=== PATIENT | male | born 1955 | race Caucasian/White ===

== ENCOUNTER 2023-06-30 17:49 | Observation (INO) ==
--- NOTE | 2023-06-30 18:05 | ED.PDOC ---
General ED Provider: Dr. MILLICENT CASTILLO DO Chief Complaint: Nausea/Vomiting Stated Complaint: Patient is a 68 yo M here for 24 hours of fever chills and diarrhea Patient arrives afebrile and vitally stable by POV Patietn denies pain He reprots 3+ episodes of loose stool without melena or hematochaezia He has no hx of abdominal surgeries No falls or injuires PCP Dr. Murillo He takes amlodipin, a statin and gabapentin Patietn denies sick contacts No provoking or palliating factors Patient declines advanced imaging and amenable to Time Seen by Provider: 06/30/23 18:03 Primary Care Provider: ANTONIO MURILLO Nursing and Triage Documentation Reviewed and Agree: Yes Review of Systems Review Of Systems Constitutional: Reports Chills, Fever and Weakness; Denies Sweats Eyes: Denies Blindness or Foreign body sensation Ears, Nose, Mouth, Throat: Denies Ear pain, Nose pain or Mouth pain Respiratory: Denies Cough, Shortness of Breath or Wheezing Cardiac: Denies Chest pain, Palpitations or Syncope GI: Reports Diarrhea; Denies Abdominal pain, Constipated, Nausea or Vomiting : Denies Burning or Dysuria Musculoskeletal: Denies Back pain or Joint pain Skin: Denies Bruising Neurological: Reports No symptoms Endocrine: Reports No symptoms Hematologic/Lymphatic: Reports No symptoms All Other Systems: Reviewed and Negative [facility] Social History Smoking and tobacco status: Current every day smoker Physical Exam Physical Exam Appearance: Reports Well-appearing and Well-nourished Ill-appearing: Not Applicable Pain Distress: Not Applicable Eyes: Reports SERVANDO and EOMI ENT: Reports Ears normal, Nose normal and Oropharynx normal Neck: Supple Respiratory: Reports Airway patent and Breath sounds clear; Denies Wheezes Cardiovascular: Reports RRR and Pulses normal GI/: Reports Soft and Nontender Musculoskeletal: Reports Normal strength and ROM intact Skin: Reports Warm and Dry Neurological: Reports Sensation intact and Motor intact Psychiatric: Reports Affect appropriate and Mood appropriate Critical Care Note Critical Care Note Total Critical Care Time (mins): 0 Course Course 06/30/23 18:13 06/30/23 18:13 Orders, Labs, Meds: Lab Review 06/30/23 18:13 WBC 10.13 RBC 4.71 Hgb 14.3 Hct 44.7 MCV 94.9 H MCH 30.4 MCHC 32.0 RDW Coeff of Manish 12.8 Plt Count 261 Immature Gran % (Auto) 0.3 Neut % (Auto) 76.7 H Lymph % (Auto) 12.7 [place] % (Auto) 9.9 Eos % (Auto) 0.2 Baso % (Auto) 0.2 Neut # (Auto) 7.8 H Lymph # (Auto) 1.3 [place] # (Auto) 1.0 Eos # (Auto) 0.0 Baso # (Auto) 0.0 Immature Gran # (Auto) 0.0 Sodium 137.3 Potassium 3.89 Chloride 105.2 Carbon Dioxide 21.2 L Anion Gap 14.79 BUN 18.8 Creatinine 1.12 H Estimated GFR (MDRD) 65.00 BUN/Creatinine Ratio 16.78 Glucose 93.2 Lactic Acid 0.87 Calcium 9.24 Total Bilirubin 0.65 AST 37.1 ALT 20.8 Alkaline Phosphatase 94.1 Total Protein 8.46 H Albumin 4.35 Globulin 4.11 Albumin/Globulin Ratio 1.05 Lipase 1950.6 H Influ A Molecular Assay Negative by naat Influ B Molecular Assay Negative by naat SARS CoV-2 RNA Rapid MIRANDA Negative Orders Category Date Time Status OBSERVATION [PLACE PATIENT OBSERVATION] .TO [facility] ADMISSION 06/30/23 19:52 Ordered (NON-MONITORED BED) NPO REMINDER: IMAGING ONCE CARE 06/30/23 18:43 Completed CBC W/ AUTO DIFF Stat LAB 06/30/23 18:13 Completed COMPREHENSIVE METABOLIC PANEL Stat LAB 06/30/23 18:13 Completed COVID [SARS COV-2 RNA RAPID MIRANDA] Stat LAB 06/30/23 18:13 Completed FLU A & B MOLECULAR [FLU A/B MOLECULAR] Stat LAB 06/30/23 18:13 Completed LACTIC ACID Stat LAB 06/30/23 18:13 Completed LIPASE Stat LAB 06/30/23 18:[address] ABDOMEN/PELVIS W CONTRAST Stat RADS 06/30/23 18:43 Completed Vital Signs: Temp Pulse Resp BP Pulse Ox 06/30/23 18:13 98 F 92 16 145/[address] abd added for chronically elevated lipase We discussed ct results and incidental findings MDM: Patient is a 68 yo M here for diarrhea and body aches patient afebrile and vitally stable Hx from patient chart review by me 3+ labs and 1 ct abd result reviewed by me Consults to CANDY Diop Patient and I discussed ct and lab results, findings and incidental findings WDX: Enteritis, elevated lipase, aortic aneurysm, diarrhea acute on [id number] moderate complexity DDX: I considered alcohol use, sepsis, sbo but these are less likely SDOH: patient has PCP and family support Patient amenable to observation and am studies Patient placed on observation Discharge Plan Discharge Patient Disposition: PLACED OBSERVATION Discharge Problem: Acute viral syndrome, Aortic aneurysm, Diarrhea, Elevated lipase Did you review [place] GEOPHYSICS PROFESSOR for ALL controlled substances?: Not Applicable ED Provider: MILLICENT CASTILLO Condition: Good Physician Progress Note: []
[2023-06-30 18:16] LABS: BASOPHILS % (AUTO) 0.2 % (0.0-3.0); EOSINOPHILS % (AUTO) 0.2 % (0.0-7.0); HEMATOCRIT 44.7 % (42.0-52.0); HEMOGLOBIN 14.3 g/dl (14.0-18.0); IMMATURE GRANULOCYTE % (AUTO) 0.3 % (0.0-5.0); LYMPHOCYTES # (AUTO) 1.3 K/uL (0.60-3.4); LYMPHOCYTES % (AUTO) 12.7 (10.0-50.0); MEAN CORPUSCULAR HEMOGLOBIN 30.4 pg (27.0-31.0); MEAN CORPUSCULAR VOLUME 94.9 fl (80.0-94.0); MONOCYTES % (AUTO) 9.9 (0-10); NEUTROPHILS # (AUTO) 7.8 K/ul (2.0-6.9); NEUTROPHILS % (AUTO) 76.7 % (42.2-75.2); PLATELET COUNT 261 10^3/uL (140-440); RDW COEFFICIENT OF VARIATION 12.8 % (11.6-14.8); RED BLOOD COUNT 4.71 10^6/ul (4.70-6.10); WHITE BLOOD COUNT 10.13 K/ul (4.2-10.2)
[2023-06-30 18:30] LABS: ALANINE AMINOTRANSFERASE 20.8 U/L (0-50); ALBUMIN 4.35 g/dL (3.5-5.0); ALKALINE PHOSPHATASE 94.1 U/L (56-119); ASPARTATE AMINO TRANSFERASE 37.1 U/L (17-59); BILIRUBIN,TOTAL 0.65 mg/dL (0.2-1.3); BLOOD UREA NITROGEN 18.8 mg/dL (9-20); CALCIUM 9.24 mg/dL (8.4-10.2); CARBON DIOXIDE 21.2 mmol/L (22-30.0); CHLORIDE 105.2 mmol/L (98-107); CREATININE 1.12 mg/dL (0.60-1.10); GLUCOSE 93.2 mg/dL (74-106); LIPASE 1950.6 U/L (23-300); POTASSIUM 3.89 mmol/L (3.5-5.1); SODIUM 137.3 mmol/L (134.5-145); TOTAL PROTEIN 8.46 g/dL (6.3-8.2)
[2023-06-30 18:39] LABS: MOLECULAR FLU A NEGATIVE BY NAAT (NEGATIVE); MOLECULAR FLU B NEGATIVE BY NAAT (NEGATIVE)
[2023-06-30 18:41] LABS: SARS COV-2 RNA RAPID NAAT NEGATIVE (NEGATIVE)
--- NOTE | 2023-06-30 19:19 | CT ---
EXAM: CT ABDOMEN/PELVIS WITH CONTRAST HISTORY: Diarrhea, chronic high lipase- worse, no pain COMPARISON: CT abdomen/pelvis from 07/04/2021 TECHNIQUE: Multi-slice postcontrast transaxial helical images are acquired through the abdomen and p vlad with coronal and sagittal reconstructed images. All CT scans are performed using dose optimi zation techniques as appropriate to the performed exam and includes at least one of the following: A utomated exposure control, adjustment of the mA and/or kV according to size, and the use of iterative reconstruction technique. CONTRAST: 75 mL Omnipaque-350 IV FINDINGS: Lung bases: No acute infiltrates. The lungs are emphysematous. There is prominence of the intersti tial lung markings. Liver: A simple cyst in hepatic segment III measuring 1.5 cm is unchanged. Gallbladder/bilary tree: Normal. Pancreas: Normal. Adrenal glands: There is mild nodular thickening of the left adrenal gland without significant change . The right adrenal gland is normal. Spleen: Normal. Kidneys: There are least 8 calculi in the left kidney ranging in size between less than 0.2 cm and 0 .7 cm. Simple acquired left renal cysts are noted. There are multiple areas of right renal cortical thinning. There is mild right hydronephrosis. No hydroureter. The left renal collecting system is nondilated. No ureterolithiasis. Retroperitoneum: The aorta is atherosclerotic. There is a fusiform infrarenal abdominal aortic aneu rysm measuring 35.9 x 30.4 mm. This has increased in size from 29.6 mm maximally on the prior. No r etroperitoneal lymphadenopathy or hematomas. Peritoneum: Normal. Bowel: Diverticula arise from large bowel without CT evidence of diverticulitis. The appendix is no rmal. There is prominence of the mucosal folds. No intestinal distension. Pelvis: Normal. Addominal wall/bones: A tiny fat transmitting umbilical hernia is noted. No suspicious bone lesions or acute osseous abnormalities. IMPRESSION: - Emphysema and interstitial lung disease. - Stable simple hepatic cyst. - No evidence of acute or chronic pancreatitis. - Probable left adrenal adenoma. - At least eight nonobstructing left renal calculi. - Chronic right renal cortical thinning could reflect a sequelae of reflux, stasis, infection, and/or ischemia. - Mild chronic right hydronephrosis. - Enlarging infrarenal aortic aneurysm measuring 35.9 x 30.4 mm, previously 29.6 mm maximally. - Colonic diverticulosis without CT evidence of diverticulitis. - Possible enteritis. . All CT scans are performed using dose optimization techniques as appropriate to the performed exam an d include at least one of the following: Automated exposure control, adjustment of the mA and/or kV according t o size, and the use of iterative reconstruction technique.
[2023-06-30] MEDS ORDERED: ZOFRAN 4 MG/2 ML IVP PRN (19:53)
[2023-06-30] MEDS: LACTATED RINGERS 1,000 ML IV SCH (20:58)
[2023-06-30 21:04] VITALS: BMI 24.3
[2023-06-30] MEDS ORDERED: LIPITOR PO SCH (21:30)
[2023-06-30] MEDS ORDERED: NORVASC PO SCH (21:30)
[2023-06-30] MEDS: NEURONTIN PO SCH (21:38)
[2023-07-01] MEDS: LACTATED RINGERS 1,000 ML IV SCH (05:20)
[2023-07-01 06:03] LABS: BASOPHILS % (AUTO) 0.2 % (0.0-3.0); EOSINOPHILS # (AUTO) 0.1 K/ul (0.0-0.7); EOSINOPHILS % (AUTO) 1.3 % (0.0-7.0); HEMATOCRIT 42.9 % (42.0-52.0); HEMOGLOBIN 13.6 g/dl (14.0-18.0); IMMATURE GRANULOCYTE % (AUTO) 0.2 % (0.0-5.0); LYMPHOCYTES # (AUTO) 1.5 K/uL (0.60-3.4); LYMPHOCYTES % (AUTO) 17.2 (10.0-50.0); MEAN CORPUSCULAR HEMOGLOBIN 30.4 pg (27.0-31.0); MEAN CORPUSCULAR HGB CONC 31.7 (31.8-35.4); MONOCYTES # (AUTO) 0.9 K/uL (0.4-2.0); NEUTROPHILS # (AUTO) 6.2 K/ul (2.0-6.9); NEUTROPHILS % (AUTO) 71.1 % (42.2-75.2); PLATELET COUNT 224 10^3/uL (140-440); RDW COEFFICIENT OF VARIATION 12.9 % (11.6-14.8); RED BLOOD COUNT 4.47 10^6/ul (4.70-6.10); WHITE BLOOD COUNT 8.76 K/ul (4.2-10.2)
[2023-07-01 06:18] LABS: ALANINE AMINOTRANSFERASE 18.3 U/L (0-50); ALBUMIN 3.73 g/dL (3.5-5.0); ASPARTATE AMINO TRANSFERASE 33.5 U/L (17-59); BILIRUBIN,TOTAL 0.76 mg/dL (0.2-1.3); CALCIUM 8.63 mg/dL (8.4-10.2); CARBON DIOXIDE 23.4 mmol/L (22-30.0); CHLORIDE 104.1 mmol/L (98-107); CREATININE 1.06 mg/dL (0.60-1.10); GLUCOSE 126.5 mg/dL (74-106); LIPASE 943.4 U/L (23-300); POTASSIUM 3.47 mmol/L (3.5-5.1); SODIUM 136.6 mmol/L (134.5-145); TOTAL PROTEIN 7.39 g/dL (6.3-8.2)
[2023-07-01] MEDS: NEURONTIN PO SCH (07:59)
[2023-07-01] MEDS ORDERED: POTASSIUM CHLORIDE 20 MEQ/100 ML PREMIX 20 MEQ/100 ML BAG IV ONE (08:35)
[2023-07-01] MEDS ORDERED: NORVASC PO SCH (09:00)
[2023-07-01] MEDS ORDERED: LIPITOR PO SCH (09:00)
[2023-07-01] MEDS ORDERED: NEURONTIN PO SCH (09:00)
--- NOTE | 2023-07-01 09:50 | US ---
EXAM: ULTRASOUND ABDOMEN COMPLETE HISTORY: Abdominal pain. TECHNIQUE: Sonography of the abdomen and retroperitoneum was performed. Color Doppler images of the main portal vein were also obtained. Images were obtained and stored in a permanent archive. COMPARISON: Contrast enhanced CT scan of the abdomen and pelvis dated 06/30/2023. FINDINGS: Pancreas: The pancreas is not visualized due to overlying bowel gas. Liver: Normal size and normal echogenicity. Benign cyst in the left hepatic lobe measuring 1.4 cm. Main portal vein: Normal antegrade flow. Biliary: Common bile duct measures 4.2 mm. Gallbladder is unremarkable with no stones or wall thicke lena. Spleen: Normal in size and no focal lesion. Right Kidney: Measures 8.4 x 4.3 x 4.7 cm. No hydronephrosis, calculus, or solid mass. Several singh gn cysts measuring up to 2.1 cm. Left Kidney: Measures 10.4 x 5.6 x 4.8 cm. No hydronephrosis or solid mass. Small benign cysts rosa elena uring up to 2.1 cm and small nonobstructing calculi. IVC: Patent on color Doppler. No abnormality on marks scale imaging. Aorta: No aneurysmal dilatation in visualized portions. Distal abdominal aorta not visualized. Other: No ascites. Bladder is normal with no mass, calculus, or wall thickening. IMPRESSION: 1. Pancreas and distal abdominal aorta not visualized. 2. Benign cysts in the liver and kidneys. 3. Nonobstructing left renal calculi. 4. Otherwise normal sonographic appearance of the abdomen.
[2023-07-01 10:18] VITALS: BP 124/80; PULSE 71; RESP 16; TEMP 97.9
--- NOTE | 2023-07-01 10:31 | PCM.SS ---
Provider Provider: Vidya Salas PA-C, [facility] Admission Date Admission Date: 06/30/23 Discharge Date Discharge Date: 07/01/23 Primary Care Physician Primary Care Physician: ANTONIO BROWNLEE Chief Complaint Reason For Visit: ELEVATED LIPASE History of Present Illness History of Present Illness: Admitted 06/30/23 20:07, this 68 year old /WHITE/M with pmhx of hypertension, hyperlipidemia, neuropathy, AAA who presented to ER with cc of d iarrhea for past 2 days. Overall not feeling well. Has had chills but no fever. Denies abd pain, nausea, vomiting. No sick contacts, undercooked food, recent new meds/antibiotics. No blood in stool. In ER had a normal work up except for lipase 1900. CT scan had chronic findings and possible enteritis. Pt was given fluids and admitted overnight. Looking back at his history, patient has had a mildly elevated lipase chronically for many years. Likely acutely worsened due to viral syndrome/dehydration. It improved overnight with fluids. No epigastric pain, n/v, or CT findings of pancreatitis. US showed no gallbladder stones. He is feeling at baseline this morning and has not had a BM while admitted. Eager to go home. Will discharge home, push fluids, bland diet. Discussed importance of f/u with pcp regarding other chronic CT findings. Pt had a infrarenal AA that has grown in size, measuring 35.9 x 30.4 mm, likely needs referral to vascular to monitor. Pt CT also showing several left renal calculi, chronic right renal cortical thinning, and chronic right hydronephrosis. Consider urology f/u outpatient as well. Pt aware of these findings. [facility] Medical History (Updated 06/30/23 @ 21:33 by BEBETO GEIGER, JHONATAN) Skin cancer C44.90 - Unspecified malignant neoplasm of skin, unspecified (ICD-10) Knee torn cartilage S83.209A - Unspecified tear of unspecified meniscus, current injury, unspecified knee, initial encounter (ICD-10) Asthma J45.909 - Unspecified asthma, uncomplicated (ICD-10) High cholesterol E78.00 - Pure hypercholesterolemia, unspecified (ICD-10) High blood pressure I10 - Essential (primary) hypertension (ICD-10) Surgical History (Updated 06/30/23 @ 21:33 by BEBETO GEIGER RN) Status post surgical removal of malignant neoplasm of skin Z98.890 - Other specified postprocedural states (ICD-10) H/O arthroscopy of right knee Z98.890 - Other specified postprocedural states (ICD-10) H/O repair of rotator cuff Z98.890 - Other specified postprocedural states (ICD-10) Family History (Updated 06/30/23 @ 20:50 by BEBETO GEIGER RN) BROTHER Cancer BROTHER Cancer SISTER Cancer FATHER Myocardial infarction Social History (Updated 06/30/23 @ 20:53 by BEBETO GEIGER RN) Smoking and tobacco status: Former smoker Tobacco: How many years used: 50 (quit 5 years ago) Passive smoking exposure: No Medications Mecications: Medications at Discharge (Home Meds & RX) amlodipine 5 mg tablet 5 mg PO BEDTIME 07/04/21 atorvastatin 20 mg tablet 20 mg PO BEDTIME 06/30/23 gabapentin 600 mg tablet 600 mg PO TID 06/30/23 Allergies Allergies Allergy/AdvReac Type Severity Reaction Status Date / Time mirtazapine [From Remeron] AdvReac Verified 06/30/23 18:18 Penicillins AdvReac Verified 06/30/23 18:18 Review of Systems Constitutional: Reports Chills, Weakness and Sweats; Denies Fever Head: Reports Normocephalic and Atraumatic Cardiovascular: Denies Chest pain, Chest Pressure or Edema Respiratory: Denies Cough or Shortness of air Gastrointestinal: Reports Diarrhea; Denies Nausea, Vomiting, Black Tarry Stools, Abdominal pain or Melena Genitourinary: Denies Dysuria, Hematuria or Frequency Dermatologic: Denies Rashes Neurological: Denies Headache, Dizziness or Seizure Physical Examination Appearance: Positive Well-appearing, Well-nourished, No Apparent Distress and Alert and Oriented x3 Head: Positive Normocephalic and Atraumatic Neck: Positive Supple and Trachea Midline Heart: Positive RRR Respiratory: Positive Breath Sounds Clear, Bilaterally; Negative Crackles, Rhonchi or Wheezes GI/: Positive Soft, Nontender, Bowel sounds normal and No Distention Extremities: Negative Edema Neurological: Positive Cranial nerves intact, Alert and Oriented Psychiatric: Positive Normal Judgement, Normal Insight, Affect Appropriate and Mood Appropriate Vital Signs (Last 4 Hours) Vital Signs Last 4 Hours: Vital Signs: Last 4 Hours 07/01/23 07:00 07/01/23 08:00 07/01/23 08:00 Temperature Temperature Source Pulse Rate Respiratory Rate Blood Pressure Blood Pressure Mean Blood Pressure Location Blood Pressure Position O2 Sat by Pulse Oximetry Oxygen Delivery Method Room Air Room Air Room Air 07/01/23 09:00 07/01/23 09:59 07/01/23 09:59 Temperature 97.9 F Temperature Source Oral Pulse Rate 71 Respiratory Rate 16 Blood Pressure 124/80 Blood Pressure Mean 94 Blood Pressure Location Left Arm Blood Pressure Position Supine O2 Sat by Pulse Oximetry 96 Oxygen Delivery Method Room Air Room Air Room Air Labs This Visit Labs This Visit: Labs This Visit 06/30/23 07/01/23 18:13 05:48 WBC 10.13 8.76 RBC 4.71 4.47 L Hgb 14.3 13.6 L Hct 44.7 42.9 MCV 94.9 H 96.0 H MCH 30.4 30.4 MCHC 32.0 31.7 L RDW Coeff of Manish 12.8 12.9 Plt Count 261 224 Immature Gran % (Auto) 0.3 0.2 Neut % (Auto) 76.7 H 71.1 Lymph % (Auto) 12.7 17.2 [place] % (Auto) 9.9 10.0 Eos % (Auto) 0.2 1.3 Baso % (Auto) 0.2 0.2 Neut # (Auto) 7.8 H 6.2 Lymph # (Auto) 1.3 1.5 [place] # (Auto) 1.0 0.9 Eos # (Auto) 0.0 0.1 Baso # (Auto) 0.0 0.0 Immature Gran # (Auto) 0.0 0.0 Sodium 137.3 136.6 Potassium 3.89 3.47 L Chloride 105.2 104.1 Carbon Dioxide 21.2 L 23.4 Anion Gap 14.79 12.57 BUN 18.8 18.0 Creatinine 1.12 H 1.06 Estimated GFR (MDRD) 65.00 69.00 BUN/Creatinine Ratio 16.78 16.98 Glucose 93.2 126.5 H Lactic Acid 0.87 Calcium 9.24 8.63 Total Bilirubin 0.65 0.76 AST 37.1 33.5 ALT 20.8 18.3 Alkaline Phosphatase 94.1 76.0 Total Protein 8.46 H 7.39 Albumin 4.35 3.73 Globulin 4.11 3.66 Albumin/Globulin Ratio 1.05 1.01 Lipase 1950.6 H 943.4 H Influ A Molecular Assay Negative by naat Influ B Molecular Assay Negative by naat SARS CoV-2 RNA Rapid IMRANDA Negative Imaging Imaging: EXAM: CT ABDOMEN/PELVIS WITH CONTRAST HISTORY: Diarrhea, chronic high lipase- worse, no pain COMPARISON: CT abdomen/pelvis from 07/04/2021 TECHNIQUE: Multi-slice postcontrast transaxial helical images are acquired through the abdomen and pelvis with coronal and sagittal reconstructed images. All CT scans are performed using dose optimization techniques as appropriate to the performed exam and includes at least one of the following: Automated exposure control, adjustment of the mA and/or kV according to size, and the use of iterative reconstruction technique. CONTRAST: 75 mL Omnipaque-350 IV FINDINGS: Lung bases: No acute infiltrates. The lungs are emphysematous. There is prominence of the interstitial lung markings. Liver: A simple cyst in hepatic segment III measuring 1.5 cm is unchanged. Gallbladder/bilary tree: Normal. Pancreas: Normal. Adrenal glands: There is mild nodular thickening of the left adrenal gland without significant change. The right adrenal gland is normal. Spleen: Normal. Kidneys: There are least 8 calculi in the left kidney ranging in size between less than 0.2 cm and 0.7 cm. Simple acquired left renal cysts are noted. There are multiple areas of right renal cortical thinning. There is mild right hydronephrosis. No hydroureter. The left renal collecting system is nondilated. No ureterolithiasis. Retroperitoneum: The aorta is atherosclerotic. There is a fusiform infrarenal abdominal aortic aneurysm measuring 35.9 x 30.4 mm. This has increased in size from 29.6 mm maximally on the prior. No retroperitoneal lymphadenopathy or hematomas. Peritoneum: Normal. Bowel: Diverticula arise from large bowel without CT evidence of diverticulitis. The appendix is normal. There is prominence of the mucosal folds. No intestinal distension. Pelvis: Normal. Addominal wall/bones: A tiny fat transmitting umbilical hernia is noted. No suspicious bone lesions or acute osseous abnormalities. IMPRESSION: - Emphysema and interstitial lung disease. - Stable simple hepatic cyst. - No evidence of acute or chronic pancreatitis. - Probable left adrenal adenoma. - At least eight nonobstructing left renal calculi. - Chronic right renal cortical thinning could reflect a sequelae of reflux, stasis, infection, and/or ischemia. - Mild chronic right hydronephrosis. - Enlarging infrarenal aortic aneurysm measuring 35.9 x 30.4 mm, previously 29.6 mm maximally. - Colonic diverticulosis without CT evidence of diverticulitis. - Possible enteritis. EXAM: ULTRASOUND ABDOMEN COMPLETE HISTORY: Abdominal pain. TECHNIQUE: Sonography of the abdomen and retroperitoneum was performed. Color Doppler images of the main portal vein were also obtained. Images were obtained and stored in a permanent archive. COMPARISON: Contrast enhanced CT scan of the abdomen and pelvis dated 06/30/2023. FINDINGS: Pancreas: The pancreas is not visualized due to overlying bowel gas. Liver: Normal size and normal echogenicity. Benign cyst in the left hepatic lobe measuring 1.4 cm. Main portal vein: Normal antegrade flow. Biliary: Common bile duct measures 4.2 mm. Gallbladder is unremarkable with no stones or wall thickening. Spleen: Normal in size and no focal lesion. Right Kidney: Measures 8.4 x 4.3 x 4.7 cm. No hydronephrosis, calculus, or solid mass. Several benign cysts measuring up to 2.1 cm. Left Kidney: Measures 10.4 x 5.6 x 4.8 cm. No hydronephrosis or solid mass. Small benign cysts measuring up to 2.1 cm and small nonobstructing calculi. IVC: Patent on color Doppler. No abnormality on marks scale imaging. Aorta: No aneurysmal dilatation in visualized portions. Distal abdominal aorta not visualized. Other: No ascites. Bladder is normal with no mass, calculus, or wall thickening. IMPRESSION: 1. Pancreas and distal abdominal aorta not visualized. 2. Benign cysts in the liver and kidneys. 3. Nonobstructing left renal calculi. 4. Otherwise normal sonographic appearance of the abdomen. Review Review Statement: I have independently reviewed and interpreted the labs/EKGs/imaging that were ordered by the ER provider. I have reviewed all outside records that are available currently in our EMR including imaging/notes/labs from previous visits. Plan Reccomendations/Plan: 1. Enteritis - Improved Fluids overnight, zofran prn, NPO. 2. Elevated lipase, acute on chronic - Likely in setting of viral syndrome and dehydration. Hydrated overnight. Repeat lipase improved. US abd without acute findings. 3. Hypertension - Continue home meds 4. Hyperlipidemia - Continue home meds 5. Neuropathy - Continue home meds 6. Infrarenal AA - Slightly enlarged. F/u outpatient w/ vascular 7. Right renal cortical thinning and hydronephrosis, chronic - F/u outpatient w/ urology Pt was given fluids and admitted overnight. Looking back at his history, patient has had a mildly elevated lipase chronically for many years. Likely acutely worsened due to viral syndrome/dehydration. It improved overnight with fluids. No epigastric pain, n/v, or CT findings of pancreatitis. US showed no gallbladder stones. He is feeling at baseline this morning and has not had a BM while admitted. Eager to go home. Will discharge home, push fluids, bland diet. Discussed importance of f/u with pcp regarding other chronic CT findings. Pt had a infrarenal AA that has grown in size, measuring 35.9 x 30.4 mm, likely needs referral to vascular to monitor. Pt CT also showing several left renal calculi, chronic right renal cortical thinning, and chronic right hydronephrosis. Consider urology f/u outpatient as well. Pt aware of these findings. Discharge diagnosis: 1. Enteritis, improved 2. Elevated lipase, improved 3. Hypertension, chronic/stable 4. Hyperlipidemia, chronic/stable 5. Neuropathy, chronic/stable 6. Infrarenal AA, chronic, worsening 7. Right renal cortical thinning and hydronephrosis, chronic Additional Planning: Case discussed with ED Physician, Dr. Marcus. DVT Prophylaxis: Ambulation Advanced Care Plannin minutes spent discussing advance care planning. FULL CODE Admit to: OBS Discussed Plan of Care with Dr. Fredrick Lyons. Review With Patient Reviewed with Patient and Family: Patient and family have been counseled on condition and care plan and have no immediate questions. I have personally discussed and reviewed the patient's visit/current labs/imaging/decision making with Dr. Fredrick Lyons, my supervising attending. Total number of minutes spent with patient [85] min. More than 50% of the time spent with this patient was devoted to counseling and coordination of care. Time of Admission:06/30/23 20:07 Time of Discharge: 07/01/23 1000 Discharge Plan Discharge Discharge Orders: Discharge Patient (ONCE); Ordered 07/01/23 Ordered By: VIDYA COWSERT Activity Restrictions/Additional Instructions: DISCHARGE TO HOME DX: ENTERITIS, ELEVATED LIPASE F/U WITH PCP WITHIN 1 WEEK F/U WITH VASCULAR AND UROLOGY OUTPATIENT DIET: PROGRESS TOLERATED ACTIVITY: TOLERATED Instructions: Nonruptured Abdominal Aortic Aneurysm (DC), Enteritis (DC) Care Plan Goals: Problem: Nausea Goal #1: Maintain adequate fluid volume Instructions: Monitor for signs and symptoms of dehydration Monitor I/O as needed Goal #2: Relief of nausea Instructions: Medication as ordered Position to prevent aspiration Patient Disposition: HOME SELF-CARE Prescriptions: Continued amlodipine 5 mg tablet 5 mg PO BEDTIME gabapentin 600 mg tablet 600 mg PO TID atorvastatin 20 mg tablet 20 mg PO BEDTIME Did you review [place] KEYBOARDING TEACHER for ALL controlled substances?: Not Applicable Discussed opioids are addictive and Narcan is available by prescription or from pharmacy.: No Condition: Good
== END 2023-07-01 11:58 | disposition home or self-care (01) ==
LOC: ED 17:49 → MEDSURG B 17:49
PROVIDERS: ADMIT Nurse Practitioner Family; ATTEND Physician Assistant

== ENCOUNTER 2025-09-03 11:50 | Observation (INO) ==
[2025-09-03 12:24] LABS: IMMATURE GRANULOCYTE # (AUTO) 0.1 (0.0-1.0); IMMATURE GRANULOCYTE % (AUTO) 0.4 % (0.0-5.0); RDW COEFFICIENT OF VARIATION 13.0 % (11.6-14.8)
[2025-09-03 12:33] LABS: CREATININE 1.39 mg/dL (0.60-1.10)
[2025-09-03] MEDS: DUONEB NEB STA (12:36)
[2025-09-03] MEDS ORDERED: LEVAQUIN 500 MG/100 ML D5W 500 MG/100 ML BAG IV STA (12:49)
[2025-09-03 13:06] LABS: MOLECULAR FLU A NEGATIVE BY NAAT (NEGATIVE); MOLECULAR FLU B NEGATIVE BY NAAT (NEGATIVE); SARS COV-2 RNA RAPID NAAT NEGATIVE (NEGATIVE)
--- NOTE | 2025-09-03 13:09 | DI ---
EXAM: SINGLE VIEW OF THE CHEST HISTORY: Cough. COMPARISON: Chest x-ray 06/21/2025 FINDINGS: Cardiomediastinal silhouette is unremarkable. There is no pneumothorax or effusion. There is no consolidation, nodule or mass. Osseous structures are unremarkable. IMPRESSION: No acute cardiopulmonary process
[2025-09-03] MEDS: SOLU-MEDROL 125 MG IVP ONE (13:19)
[2025-09-03] MEDS: SODIUM CHLORIDE 1,000 ML IV ONE (13:21)
[2025-09-03] MEDS: LEVAQUIN 750 MG/150 ML D5W 750 MG/150 ML BAG IV ONE (13:21)
--- NOTE | 2025-09-03 14:14 | CT ---
EXAM: CT CHEST WITHOUT CONTRAST HISTORY: Cough COMPARISON: Chest x-ray same day and priors TECHNIQUE: Serial axial images of the chest were obtained from the lung apices to the upper abdomen without contrast. These were viewed in multiple planes. FINDINGS: The thyroid is normal. The visualized vessels demonstrates moderate atherosclerotic disease without aneurysm or stenosis. The heart is normal in size without pericardial effusion. There are no pathologically enlarged mediastinal or hilar lymph nodes. There are calcified left hilar lymph nodes. There is no pneumothorax or effusion. There is peripheral interstitial thickening/fibrosis. There is bronchiectasis. There is minimal scattered areas of ground-glass. There is consolidation in the medial right lower lobe. Central airways are patent. Soft tissues in the upper abdomen demonstrate low attenuation left hepatic lesion with Hounsfield units consistent with a cyst. Left adrenal nodule is present. The osseous structures demonstrated degenerative disease. IMPRESSION: 1. Patchy groundglass opacities most pronounced in the medial right lower lobe suggestive of inflammation versus infection. 2. Underlying COPD with bronchiectasis and peripheral fibrosis. 3. Sequela of old granulomatous disease. 4. Low attenuation hepatic lesion most consistent with a cyst. All CT scans are performed using dose optimization techniques as appropriate to the performed exam and include at least one of the following: Automated exposure control, adjustment of the mA and/or kV according to size, and the use of iterative reconstruction technique.
--- NOTE | 2025-09-03 14:24 | ED.PDOC ---
General HPI ED Provider: Dr. JOSIE MENDOSA MD Chief Complaint: Respiratory Complaint Stated Complaint: 70 years old male with history of COPD comes emergency room for cough and shortness of breath. Patient reports having productive cough with yellowish phlegm for the last few days along with some shortness of breath he has a history of pneumonia but denies any chest pain no nausea or vomiting no changes in bowel or urine. Time Seen by Provider: 09/03/25 12:17 Information Source: Patient Primary Care Provider: THUY CAMPBELL Nursing and Triage Documentation Reviewed and Agree: Yes Opioid Naive vs. Tolerant What is Opioid Naive?: *Opioid Naive implies the patient is not already taking opioids or not chronically receiving opioids on a daily basis. *PRN dosing is not "usually" associated with tolerance. *Patients are at higher risk of over-sedation and aspiration. What is Opioid Tolerant?: *Opioid Tolerance implies less than the expected response to an opioid. *Acquired tolerance is defined by the patient taking 60mg of oral morphine daily (or equianalgesic dose of another opioid) for 1 week or more. *Often associated with chronic pain. *May take more than usual dose to achieve desired pain control. Review of Systems Review Of Systems Constitutional: Reports No symptoms All Other Systems: Reviewed and Negative [facility] Medical History Skin cancer C44.90 - Unspecified malignant neoplasm of skin, unspecified (ICD-10) Knee torn cartilage S83.209A - Unspecified tear of unspecified meniscus, current injury, unspecified knee, initial encounter (ICD-10) Asthma J45.909 - Unspecified asthma, uncomplicated (ICD-10) High cholesterol E78.00 - Pure hypercholesterolemia, unspecified (ICD-10) High blood pressure I10 - Essential (primary) hypertension (ICD-10) Family History BROTHER Cancer BROTHER Cancer SISTER Cancer FATHER Myocardial infarction Social History Smoking and tobacco status: Former smoker Tobacco: How many years used: 50 (quit 5 years ago) Passive smoking exposure: No Surgical History Status post surgical removal of malignant neoplasm of skin Z98.890 - Other specified postprocedural states (ICD-10) H/O arthroscopy of right knee Z98.890 - Other specified postprocedural states (ICD-10) H/O repair of rotator cuff Z98.890 - Other specified postprocedural states (ICD-10) Physical Exam Physical Exam Appearance: Reports Ill-appearing Ill-appearing: Mild Respiratory: Reports Breath sounds diminished (On the right lower lobe) Cardiovascular: Reports RRR, Pulses normal, No rub and No murmur GI/: Reports Soft, Nontender, No masses and Bowel sounds normal Musculoskeletal: Reports Normal strength and ROM intact Skin: Reports Warm and Normal color Neurological: Reports Sensation intact and Motor intact Psychiatric: Reports Affect appropriate Course Course 09/03/25 12:10 09/03/25 12:10 Orders, Labs, Meds: Lab Review 09/03/25 12:10 WBC 20.73 H RBC 3.85 L Hgb 12.2 L Hct 38.4 L MCV 99.7 H MCH 31.7 H MCHC 31.8 RDW Coeff of Manish 13.0 Plt Count 224 Immature Gran % (Auto) 0.4 Neut % (Auto) 85.9 H Lymph % (Auto) 4.4 L Cole % (Auto) 9.2 Eos % (Auto) 0.0 Baso % (Auto) 0.1 Neut # (Auto) 17.8 H Lymph # (Auto) 0.9 Cole # (Auto) 1.9 Eos # (Auto) 0.0 Baso # (Auto) 0.0 Immature Gran # (Auto) 0.1 Sodium 134.2 L Potassium 4.46 Chloride 104.5 Carbon Dioxide 23.1 Anion Gap 11.06 BUN 17.5 Creatinine 1.39 H Estimated GFR (MDRD) 51.00 BUN/Creatinine Ratio 12.58 Glucose 108.0 H Lactic Acid 0.97 Calcium 8.91 Total Bilirubin 0.66 AST 31.2 ALT 14.7 Alkaline Phosphatase 66.3 Total Protein 7.24 Albumin 3.78 Globulin 3.46 Albumin/Globulin Ratio 1.09 Influ A Molecular Assay Negative by naat Influ B Molecular Assay Negative by naat SARS CoV-2 RNA Rapid MIRANDA Negative Orders Category Date Time Status ADMIT OBSERVATION [PLACE PATIENT OBSERVATION] .TO ADMISSION 09/03/25 14:24 Active MEDSURG (MONITORED BED) NEBULIZER TREATMENT Stat CARDIO 09/03/25 12:18 Completed TELEMETRY MONITORING TELE CARE 09/03/25 14:24 Active BLOOD CULTURE (ED ONLY) Stat LAB 09/03/25 13:15 Received CBC W/ AUTO DIFF Stat LAB 09/03/25 12:10 Completed CMP [COMPREHENSIVE METABOLIC PANEL] Stat LAB 09/03/25 12:10 Completed COVID [SARS COV-2 RNA RAPID MIRANDA] Stat LAB 09/03/25 12:10 Completed FLU A & B MOLECULAR [FLU A/B MOLECULAR] Stat LAB 09/03/25 12:10 Completed LACTIC ACID Stat LAB 09/03/25 12:10 Completed URINALYSIS C & S IF INDICATED Stat LAB 09/03/25 13:17 Uncollected Ipratropium/Albuterol Neb [Duoneb] Meds 09/03/25 12:17 Discontinued 3 ml NEB ONCE STA Levofloxacin/D5w [Levaquin 750 mg/150 ml D5w] Meds 09/03/25 13:00 Discontinued 750 mg in 150 ml IV ONCE Methylprednisolone Sod Succ/Pf [Solu-Medrol 125 mg] Meds 09/03/25 12:17 Discontinued 125 mg IVP ONCE ONE Sodium Chloride 0.9% [Sodium Chloride] 1,000 ml Meds 09/03/25 12:[address] CHEST W/O CONTRAST Stat RADS 09/03/25 13:17 Completed CXR [CHEST, 1V AP ONLY] Stat RADS 09/03/25 12:23 Completed Medications Discontinued Medications Generic Name Dose Route Start Last Admin Trade Name Freq PRN Reason Stop Dose Admin Albuterol/Ipratropium 3 ml 09/03/25 12:17 09/03/25 12:36 Ipratropium/Albuterol Vial.Neb NEB 09/03/25 12:18 3 ml ONCE STA Administration Sodium Chloride 1,000 mls @ 1,000 mls/hr 09/03/25 12:51 09/03/25 13:21 Sodium Chloride IV 09/03/25 13:50 1,000 mls/hr BOLUS ONE Administration Levofloxacin/Dextrose 750 mg in 150 mls @ 100 mls/hr 09/03/25 13:00 09/03/25 13:21 Levaquin 750 Mg/150 Ml D5w IV 09/03/25 14:29 100 mls/hr ONCE ONE Administration Methylprednisolone Sodium Succinate 125 mg 12/19/25 12:17 09/03/25 13:19 Methylprednisolone Sod Succ/Pf 125 Mg/2 Ml Vial IVP 09/03/25 12:18 125 mg ONCE ONE Administration Vital Signs: Temp Pulse Resp BP Pulse Ox 09/03/25 11:54 97.7 F 87 20 110/73 97 Chest x-ray did not show any acute findings as per radiology interpretation, ordered CT scan which showing some patchy infiltrate in the right lower lobe as per radiology interpretation as well .patient with a leukocytosis and his respiratory symptoms consistent with pneumonia, will need IV antibiotics he was given a dose of Levaquin here discussed the patient case with the admitting hospitalist Collin and he accepted the patient to be admitted for further IV antibiotics and respiratory support. Discharge Plan Discharge Patient Disposition: PLACED OBSERVATION Discharge Problem: Pneumonia Did you review [place] [facility] for ALL controlled substances?: Not Applicable ED Provider: JOSIE MENDOSA Condition: Stable
[2025-09-03 16:36] VITALS: BMI 23.1
[2025-09-03 17:26] LABS: GLUCOSE, URINE (UA) 1+ (NEGATIVE); LEUKOCYTE ESTERASE ,URINE Negative (NEGATIVE); URINE, BLOOD Negative (NEGATIVE)
[2025-09-03] MEDS ORDERED: TYLENOL PO PRN (17:33)
[2025-09-03] MEDS ORDERED: ZOFRAN SDV IVP PRN (17:33)
[2025-09-03] MEDS: DUONEB NEB SCH (17:44)
[2025-09-03] MEDS ORDERED: SOLU-MEDROL 125 MG IVP SCH (21:00)
[2025-09-03] MEDS ORDERED: NON-FORMULARY MEDICATION (Budesonide-Glycopyr-Formoterol [Breztri Aerosphere] 160-9-4.8 mc IH SCH (21:00)
[2025-09-03] MEDS: NEURONTIN PO SCH (21:29)
[2025-09-03] MEDS: ENTRESTO 24 MG-26 MG TABLET PO SCH (21:29)
[2025-09-03] MEDS: SYMBICORT 160-4.5 MCG INHALER IH SCH (21:29)
[2025-09-03] MEDS: DESYREL PO SCH (21:29)
[2025-09-03] MEDS: SOLU-MEDROL 40 MG IVP SCH (21:29)
[2025-09-03] MEDS: LIPITOR PO SCH (21:30)
[2025-09-04 05:20] LABS: IMMATURE GRANULOCYTE # (AUTO) 0.2 (0.0-1.0); IMMATURE GRANULOCYTE % (AUTO) 1.0 % (0.0-5.0); RDW COEFFICIENT OF VARIATION 12.9 % (11.6-14.8)
[2025-09-04 05:40] LABS: CREATININE 1.35 mg/dL (0.60-1.10)
[2025-09-04] MEDS: TOPROL XL PO SCH (09:14)
[2025-09-04] MEDS: LEXAPRO PO SCH (09:14)
[2025-09-04] MEDS: ALDACTONE PO SCH (09:15)
[2025-09-04] MEDS: PLAVIX PO SCH (09:15)
[2025-09-04] MEDS: JARDIANCE PO SCH (09:15)
[2025-09-04] MEDS: SPIRIVA IH SCH (09:19)
[2025-09-04] MEDS: LEVAQUIN 750 MG/150 ML D5W 750 MG/150 ML BAG IV SCH (09:21)
[2025-09-04 12:22] VITALS: RESP 14
--- NOTE | 2025-09-04 12:38 | PCM ---
Date of Service Date Seen by Provider: 09/04/25 Time Seen by Provider: 09:00 Admit Day/Time Admission Date: 09/03/25 Admission Time: 13:49 Reason for Admission Chief Complaint: PNEUMONIA Hospital Provider Hospital Provider: MARY MARKHAM, [facility] [place] Primary Care Physician Primary Care Physician: THUY CAMPBELL History of Present Illness History of Present Illness: 70 year old male with pmhx of CHF, GERD, hyperlipidemia, HTN,and COPD presented to the ER yesterday after 2 days of cough, chills, SOA, and fever that was worsening. ER workup revealed right lower lobe pnemonia. Patient was given IV levaquin. He was admitted to [facility] for observation. Today he states he is feeling better. He is not requiring oxygen. He states he has been up ambulating to the bathroom and is doing okay with that. Afebrile this morning. No events overnight. [facility] Medical History COPD (chronic obstructive pulmonary disease) J44.9 - Chronic obstructive pulmonary disease, unspecified (ICD-10) Skin cancer C44.90 - Unspecified malignant neoplasm of skin, unspecified (ICD-10) Knee torn cartilage S83.209A - Unspecified tear of unspecified meniscus, current injury, unspecified knee, initial encounter (ICD-10) Asthma J45.909 - Unspecified asthma, uncomplicated (ICD-10) High cholesterol E78.00 - Pure hypercholesterolemia, unspecified (ICD-10) High blood pressure I10 - Essential (primary) hypertension (ICD-10) Surgical History Status post surgical removal of malignant neoplasm of skin Z98.890 - Other specified postprocedural states (ICD-10) H/O arthroscopy of right knee Z98.890 - Other specified postprocedural states (ICD-10) H/O repair of rotator cuff Z98.890 - Other specified postprocedural states (ICD-10) Family History BROTHER Cancer BROTHER Cancer SISTER Cancer FATHER Myocardial infarction Social History Smoking and tobacco status: Former smoker Tobacco: How many years used: 50 (quit 5 years ago) Passive smoking exposure: No Allergies Allergies Allergy/AdvReac Type Severity Reaction Status Date / Time mirtazapine (From Remeron) AdvReac "lost in Verified 09/03/25 11:57 my head" Penicillins AdvReac Pass out Verified 09/03/25 11:57 Current Medications Home Medications Acetaminophen (Acetaminophen 325 Mg Tablet) 650 mg PO Q4H PRN PRN Reason: Mild Pain Albuterol/Ipratropium (Ipratropium/Albuterol Vial.Neb) 3 ml NEB RTQ6H ON LICENSE OF [facility] Last Admin: 09/04/25 11:34 Dose: 3 ml Atorvastatin Calcium (Atorvastatin Calcium 20 Mg Tablet) 40 mg PO BEDTIME YOLANDA Last Admin: 09/03/25 21:30 Dose: 40 mg Budesonide/Formoterol Fumarate (Budesonide/Formoterol Fumarate 160/4.5 Mcg Inhaler) 2 puff IH BID ON LICENSE OF [facility] Last Admin: 09/04/25 09:19 Dose: 2 puff Clopidogrel Bisulfate (Clopidogrel Bisulfate 75 Mg Tablet) 75 mg PO DAILY YOLANDA Last Admin: 09/04/25 09:15 Dose: 75 mg Empagliflozin (Empagliflozin 10 Mg Tablet) 10 mg PO DAILY YOLANDA Last Admin: 09/04/25 09:15 Dose: 10 mg Escitalopram Oxalate (Escitalopram Oxalate 10 Mg Tablet) 10 mg PO DAILY YOLANDA Last Admin: 09/04/25 09:14 Dose: 10 mg Gabapentin (Gabapentin 300 Mg Capsule) 600 mg PO BID YOLADNA Last Admin: 09/04/25 09:15 Dose: 600 mg Levofloxacin/Dextrose (Levaquin 750 Mg/150 Ml D5w) 750 mg in 150 mls @ 100 mls/hr IV DAILY YOLANDA Stop: 09/07/25 08:59 Last Admin: 09/04/25 09:21 Dose: 100 mls/hr Methylprednisolone Sodium Succinate (Methylprednisolone Sod Succ/Pf 40 Mg/Ml Vial) 40 mg IVP Q8HR YOLANDA Last Admin: 09/04/25 12:35 Dose: 40 mg Metoprolol Succinate (Metoprolol Succinate 25 Mg Tab.Er.24h) 25 mg PO DAILY YOLANDA Last Admin: 09/04/25 09:14 Dose: 25 mg Ondansetron HCl (Ondansetron Hcl/Pf 4 Mg/2 Ml Sdv) 4 mg IVP Q6H PRN PRN Reason: Nausea / Vomiting Sacubitril/Valsartan (Sacubitril/Valsartan 1 Each Tablet) 1 each PO BID ON LICENSE OF [facility] Last Admin: 09/04/25 09:15 Dose: 1 each Spironolactone (Spironolactone 25 Mg Tablet) 25 mg PO DAILY ON LICENSE OF [facility] Last Admin: 09/04/25 09:15 Dose: 25 mg Tiotropium Choudrant (Tiotropium Choudrant 18 Mcg Cap.W.Dev) 1 cap IH DAILY ON LICENSE OF [facility] Last Admin: 09/04/25 09:19 Dose: 1 cap Trazodone HCl (Trazodone Hcl 50 Mg Tablet) 50 mg PO BEDTIME ON LICENSE OF [facility] Last Admin: 09/03/25 21:29 Dose: 50 mg atorvastatin 20 mg tablet 40 mg PO BEDTIME 06/30/23 [History Confirmed 09/03/25] gabapentin 600 mg tablet 600 mg PO BID 06/30/23 [History Confirmed 09/03/25] nitroglycerin 0.3 mg sublingual tablet 0.3 mg sublingual Q5M PRN chest pain 03/04/24 [History Confirmed 09/03/25] pantoprazole 20 mg tablet,delayed release (Protonix) 20 mg PO DAILY 03/04/24 [H istory Confirmed 09/03/25] Held on 09/03/25. Instructions: ran out sacubitril 49 mg-valsartan 51 mg tablet (Entresto) 1 tab PO BID 03/04/24 [History Confirmed 09/03/25] ticagrelor 60 mg tablet (Brilinta) 90 mg PO BID 03/04/24 [History Confirmed 09/03/25] albuterol sulfate 90 mcg/actuation aerosol inhaler 2 inh inhalation Q4-6H PRN shortness of breath or wheezing 06/21/25 [History Confirmed 09/03/25] budesonide 160 mcg-glycopyr 9 mcg-formot 4.8 mcg/actuation HFA inhaler (Breztri Aerosphere) 2 inh inhalation BID 06/21/25 [History Confirmed 09/03/25] clopidogrel 75 mg tablet 75 mg PO DAILY 06/21/25 [History Confirmed 09/03/25] empagliflozin 10 mg tablet (Jardiance) 10 mg PO DAILY 06/21/25 [History Confirmed 09/03/25] metoprolol succinate 25 mg tablet,extended release 24 hr 25 mg PO DAILY 06/21/25 [History Confirmed 09/03/25] spironolactone 25 mg tablet 25 mg PO DAILY 06/21/25 [History Confirmed 09/03/25] escitalopram oxalate 10 mg tablet 10 mg PO DAILY 09/03/25 [History Confirmed 09/03/25] sacubitril 24 mg-valsartan 26 mg tablet 1 tab PO BID 09/03/25 [History Confirmed 09/03/25] trazodone 50 mg tablet 50 mg PO BEDTIME 09/03/25 [History Confirmed 09/03/25] Opioid Naive vs. Tolerant What is Opioid Naive?: *Opioid Naive implies the patient is not already taking opioids or not chronically receiving opioids on a daily basis. *PRN dosing is not "usually" associated with tolerance. *Patients are at higher risk of over-sedation and aspiration. What is Opioid Tolerant?: *Opioid Tolerance implies less than the expected response to an opioid. *Acquired tolerance is defined by the patient taking 60mg of oral morphine daily (or equianalgesic dose of another opioid) for 1 week or more. *Often associated with chronic pain. *May take more than usual dose to achieve desired pain control. Review of Systems Constitutional: Reports Fatigue Head: Reports Normocephalic and Atraumatic Eyes: Reports No symptoms Ears: Reports No symptoms Nose: Reports No symptoms Mouth: Reports No symptoms Throat: Reports No symptoms Cardiovascular: Reports No symptoms; Denies Chest pain or Chest Pressure Respiratory: Reports Cough; Denies Shortness of air Gastrointestinal: Reports No symptoms; Denies Nausea, Vomiting or Diarrhea Genitourinary: Reports No Symptoms Musculoskeletal: Reports No symptoms Dermatologic: Denies Rashes or Skin Changes Endocrine: Reports No symptoms Hematology: Reports No symptoms Immunology: Reports No symptoms Neurological: Reports No symptoms Psychiatric: Reports No symptoms Physical examination Most Recent Vital Signs: Most Recent Vital Signs Temperature 98.1 F 09/04/25 10:00 Temperature Source Temporal Artery Scan 09/04/25 10:00 Temperature Source Infrared 09/03/25 11:54 Pulse Rate 80 09/04/25 10:00 Respiratory Rate 14 09/04/25 10:00 Blood Pressure 117/72 12/20/25 10:00 Blood Pressure Mean 87 09/04/25 10:00 Blood Pressure Left Arm 105/71 09/03/25 15:49 Blood Pressure Location Right Arm 09/04/25 10:00 Blood Pressure Position Sitting 09/04/25 09:13 O2 Sat by Pulse Oximetry 95 09/04/25 10:00 Oxygen Delivery Method Room Air 09/04/25 12:00 Height 5 ft 8 in 09/03/25 15:49 Weight 69 kg 09/03/25 15:49 Telemetry Type Remote Telemetry 09/04/25 01:00 Telemetry Monitoring Continues 09/04/25 01:00 Telemetry Heart Rate 74 09/04/25 01:00 Telemetry SPO2 92 L 09/04/25 01:00 EKG [place] Interval 0.20 09/04/25 01:00 EKG QRS Interval 0.09 09/04/25 01:00 EKG QT Interval 0.43 H 09/04/25 01:00 Telemetry Strip Reading NSR 09/04/25 01:00 Appearance: Positive Well-appearing, No Apparent Distress and Alert and Oriented x3 Skin: Positive [place] and Warm HEENT: Positive Normocephalic and Atraumatic Neck: Positive Supple Chest/Lungs: Positive Symmetrical With Equal Breath Sounds and Rhonci Heart: Positive RRR and Pulses Normal GI/: Positive Soft, Nontender and Bowel Sounds Normal Musculoskeletal: Positive Normal Gait and Station Extremities: Positive Good ROM in All Joints Neurological: Positive Sensation Intact, Motor intact, Alert and Oriented Psychiatric: Positive Oriented x4, Appropriate Mood and Appropriate Affect Labs This Visit Labs This Visit: Labs This Visit 09/03/25 09/03/25 09/04/25 12:10 17:16 04:36 WBC 20.73 H 18.30 H RBC 3.85 L 3.60 L Hgb 12.2 L 11.4 L Hct 38.4 L 36.0 L MCV 99.7 H 100.0 H MCH 31.7 H 31.7 H MCHC 31.8 31.7 L RDW Coeff of Manish 13.0 12.9 Plt Count 224 208 Immature Gran % (Auto) 0.4 1.0 Neut % (Auto) 85.9 H 93.9 H Lymph % (Auto) 4.4 L 2.3 L Cole % (Auto) 9.2 2.7 Eos % (Auto) 0.0 0.0 Baso % (Auto) 0.1 0.1 Neut # (Auto) 17.8 H 17.2 H Lymph # (Auto) 0.9 0.4 L Cole # (Auto) 1.9 0.5 Eos # (Auto) 0.0 0.0 Baso # (Auto) 0.0 0.0 Immature Gran # (Auto) 0.1 0.2 Sodium 134.2 L 134.8 Potassium 4.46 3.98 Chloride 104.5 106.2 Carbon Dioxide 23.1 22.8 Anion Gap 11.06 9.78 BUN 17.5 22.3 H Creatinine 1.39 H 1.35 H Estimated GFR (MDRD) 51.00 52.00 BUN/Creatinine Ratio 12.58 16.51 Glucose 108.0 H 141.3 H Lactic Acid 0.97 Calcium 8.91 8.98 Total Bilirubin 0.66 0.41 AST 31.2 29.2 ALT 14.7 13.9 Alkaline Phosphatase 66.3 52.0 L Total Protein 7.24 6.63 Albumin 3.78 3.33 L Globulin 3.46 3.30 Albumin/Globulin Ratio 1.09 1.00 Urine Color Light Urine Clarity Clear Urine pH 7.5 Ur Specific [place] 1.020 Urine Protein Negative Urine Glucose (UA) 1+ H Urine Ketones Negative Urine Blood Negative Urine Nitrite Negative Urine Bilirubin Negative Urine Urobilinogen 0.2 Ur Leukocyte Esterase Negative Influ A Molecular Assay Negative by naat Influ B Molecular Assay Negative by naat SARS CoV-2 RNA Rapid MIARNDA Negative Imaging Imaging: EXAM: SINGLE VIEW OF THE CHEST HISTORY: Cough. COMPARISON: Chest x-ray 06/21/2025 FINDINGS: Cardiomediastinal silhouette is unremarkable. There is no pneumothorax or effusion. There is no consolidation, nodule or mass. Osseous structures are unremarkable. IMPRESSION: No acute cardiopulmonary process EXAM: CT CHEST WITHOUT CONTRAST HISTORY: Cough COMPARISON: Chest x-ray same day and priors TECHNIQUE: Serial axial images of the chest were obtained from the lung apices to the upper abdomen without contrast. These were viewed in multiple planes. FINDINGS: The thyroid is normal. The visualized vessels demonstrates moderate atherosclerotic disease without aneurysm or stenosis. The heart is normal in size without pericardial effusion. There are no pathologically enlarged mediastinal or hilar lymph nodes. There are calcified left hilar lymph nodes. There is no pneumothorax or effusion. There is peripheral interstitial thickening/fibrosis. There is bronchiectasis. There is minimal scattered areas of ground-glass. There is consolidation in the medial right lower lobe. Central airways are patent. Soft tissues in the upper abdomen demonstrate low attenuation left hepatic lesion with Hounsfield units consistent with a cyst. Left adrenal nodule is present. The osseous structures demonstrated degenerative disease. IMPRESSION: 1. Patchy groundglass opacities most pronounced in the medial right lower lobe suggestive of inflammation versus infection. 2. Underlying COPD with bronchiectasis and peripheral fibrosis. 3. Sequela of old granulomatous disease. 4. Low attenuation hepatic lesion most consistent with a cyst. Review Statement Review Statement: I have independently reviewed and interpreted the labs/EKGs/imaging that were ordered by the ER provider. I have reviewed all outside records that are available currently in our EMR including imaging/notes/labs from previous visits. Plan Plan: 1. Pneumonia- levaquin IV daily, nebs, O2 PRN 2. COPD- chronic, continue home meds 3. HTN- chronic, continue home meds 4. CHF- chronic, continue home meds, no s/s of fluid overload 5. Hyperlipidemia- chronic, continue home meds DVT Prophylaxis:ambulation Time Spent: Greater than 80 minutes spent with patient, 50% of the time spent with this patient was devoted to counseling and coordination of care. [facility] minutes spent discussing advance care planning. Smoking Cessation: 3-10 minutes spent discussing smoking cessation. Disposition: Home self care Admit to: observation Discussed Plan of Care with Dr. Lyons Medications Medication Orders: Medications Ordered Category Date Time Status Acetaminophen [Tylenol] Meds 09/03/25 17:33 Active 650 mg PO Q4H PRN Atorvastatin Calcium [Lipitor] Meds 09/03/25 21:00 Active 40 mg PO BEDTIME Budesonide/Formoterol Fumarate [Symbicort 160-4.5 Mcg Meds 09/03/25 21:00 Active Inhaler] 2 puff IH BID Clopidogrel Bisulfate [Plavix] Meds 09/04/25 09:00 Active 75 mg PO DAILY Empaglifozin [Jardiance] Meds 09/04/25 09:00 Active 10 mg PO DAILY Escitalopram Oxalate [Lexapro] Meds 09/04/25 09:00 Active 10 mg PO DAILY Gabapentin [Neurontin] Meds 09/03/25 21:00 Active 600 mg PO BID Ipratropium/Albuterol Neb [Duoneb] Meds 09/03/25 18:00 Active 3 ml NEB RTQ6H Levofloxacin/D5w [Levaquin 750 mg/150 ml D5w] Meds 09/04/25 09:00 Active 750 mg in 150 ml IV DAILY Methylprednisolone Sod Succ/Pf [Solu-Medrol 40 mg] Meds 09/03/25 21:00 Active 40 mg IVP Q8HR Metoprolol Succinate [Toprol Xl] Meds 09/04/25 09:00 Active 25 mg PO DAILY Ondansetron HCl/Pf [Zofran Sdv] Meds 09/03/25 17:33 Active 4 mg IVP Q6H PRN Sacubitril/Valsartan [Entresto 24 mg-26 mg Tablet] Meds 09/03/25 21:00 Active 1 each PO BID Spironolactone [Aldactone] Meds 09/04/25 09:00 Active 25 mg PO DAILY Tiotropium Choudrant [Spiriva] Meds 09/04/25 09:00 Active 1 cap IH DAILY Trazodone HCl [Desyrel] Meds 09/03/25 21:00 Active 50 mg PO BEDTIME
--- NOTE | 2025-09-04 14:59 | DCSUM ---
Admission Date Admission Date: 09/03/25 Discharge Date Discharge Date: 09/04/25 Admission Diagnosis Admission Diagnosis: 1. Pneumonia- levaquin IV daily, nebs, O2 PRN 2. COPD- chronic, continue home meds 3. HTN- chronic, continue home meds 4. CHF- chronic, continue home meds, no s/s of fluid overload 5. Hyperlipidemia- chronic, continue home meds Discharge Diagnosis Discharge Diagnosis: 1. Pneumonia- improved, not requiring oxygen 2. COPD- chronic, continue home meds 3. HTN- chronic, continue home meds 4. CHF- chronic, continue home meds, no s/s of fluid overload 5. Hyperlipidemia- chronic, continue home meds Hospital Provider Hospital Provider: MARY MARKHAM, [facility] Primary Care Physician Primary Care Physician: THUY CAMPBELL Summary of History and Physical Summary of History and Physical: 70 year old male with pmhx of CHF, GERD, hyperlipidemia, HTN,and COPD presented to the ER yesterday after 2 days of cough, chills, SOA, and fever that was worsening. ER workup revealed right lower lobe pnemonia. Patient was given IV levaquin. He was admitted to [facility] for observation. Today he states he is fe eling better. He is not requiring oxygen. He states he has been up ambulating to the bathroom and is doing okay with that. Afebrile this morning. No events overnight. Hospital Course Subjective: Patient has not required oxygen during his stay. He has ambulated to the bathroom and showered without difficulty. Has been afebrile. Will DC home with levaquin 500mg x5 days and prednisone 20mg BID x5 days.. He has a home nebulizer and solution that he will use. Continue home inhaler. Appearance: Pleasant, No Apparent Distress, Alert and Well-appearing HEENT: MMM CVS: No Murmur Abdomen: Soft, Non-Tender and No Distention Respiratory: No Accessory Muscle Use Extremities: No Edema Vital Signs: Most Recent Vital Signs Temperature 98.1 F 09/04/25 10:00 Temperature Source Temporal Artery Scan 09/04/25 10:00 Temperature Source Infrared 09/03/25 11:54 Pulse Rate 80 09/04/25 10:00 Respiratory Rate 14 09/04/25 10:00 Blood Pressure 117/72 09/04/25 10:00 Blood Pressure Mean 87 09/04/25 10:00 Blood Pressure Left Arm 105/71 09/03/25 15:49 Blood Pressure Location Right Arm 09/04/25 10:00 Blood Pressure Position Sitting 09/04/25 09:13 O2 Sat by Pulse Oximetry 95 09/04/25 10:00 Oxygen Delivery Method Room Air 09/04/25 14:00 Height 5 ft 8 in 09/03/25 15:49 Weight 69 kg 09/03/25 15:49 Telemetry Type Remote Telemetry 09/04/25 01:00 Telemetry Monitoring Continues 09/04/25 01:00 Telemetry Heart Rate 74 09/04/25 01:00 Telemetry SPO2 92 L 09/04/25 01:00 EKG ID Interval 0.20 09/04/25 01:00 EKG QRS Interval 0.09 09/04/25 01:00 EKG QT Interval 0.43 H 09/04/25 01:00 Telemetry Strip Reading NSR 09/04/25 01:00 Lab Results Last 24 Hours: 09/04/25 09/03/25 04:36 17:16 WBC 18.30 H RBC 3.60 L Hgb 11.4 L Hct 36.0 L MCV 100.0 H MCH 31.7 H MCHC 31.7 L RDW Coeff of Manish 12.9 Plt Count 208 Immature Gran % (Auto) 1.0 Neut % (Auto) 93.9 H Lymph % (Auto) 2.3 L [place] % (Auto) 2.7 Eos % (Auto) 0.0 Baso % (Auto) 0.1 Neut # (Auto) 17.2 H Lymph # (Auto) 0.4 L [place] # (Auto) 0.5 Eos # (Auto) 0.0 Baso # (Auto) 0.0 Immature Gran # (Auto) 0.2 Sodium 134.8 Potassium 3.98 Chloride 106.2 Carbon Dioxide 22.8 Anion Gap 9.78 BUN 22.3 H Creatinine 1.35 H Estimated GFR (MDRD) 52.00 BUN/Creatinine Ratio 16.51 Glucose 141.3 H Calcium 8.98 Total Bilirubin 0.41 AST 29.2 ALT 13.9 Alkaline Phosphatase 52.0 L Total Protein 6.63 Albumin 3.33 L Globulin 3.30 Albumin/Globulin Ratio 1.00 Urine Color Light Urine Clarity Clear Urine pH 7.5 Ur Specific [place] 1.020 Urine Protein Negative Urine Glucose (UA) 1+ H Urine Ketones Negative Urine Blood Negative Urine Nitrite Negative Urine Bilirubin Negative Urine Urobilinogen 0.2 Ur Leukocyte Esterase Negative Discharge Instructions Discharge Planning: Discharge Planning > 40 minutes If patient is discharged with left ventricular systolic dysfunction: Discharged with a beta daniele? [yes] If no, why not? Discharged with an yvan/arb? [yes] If no, why not? Discharge Medications: Home Medications Acetaminophen (Acetaminophen 325 Mg Tablet) 650 mg PO Q4H PRN PRN Reason: Mild Pain Albuterol/Ipratropium (Ipratropium/Albuterol Vial.Neb) 3 ml NEB RTQ6H [facility] Last Admin: 09/04/25 11:34 Dose: 3 ml Atorvastatin Calcium (Atorvastatin Calcium 20 Mg Tablet) 40 mg PO BEDTIME [facility] Last Admin: 09/03/25 21:30 Dose: 40 mg Budesonide/Formoterol Fumarate (Budesonide/Formoterol Fumarate 160/4.5 Mcg Inhaler) 2 puff IH BID [facility] Last Admin: 09/04/25 09:19 Dose: 2 puff Clopidogrel Bisulfate (Clopidogrel Bisulfate 75 Mg Tablet) 75 mg PO DAILY [facility] Last Admin: 09/04/25 09:15 Dose: 75 mg Empagliflozin (Empagliflozin 10 Mg Tablet) 10 mg PO DAILY [facility] Last Admin: 09/04/25 09:15 Dose: 10 mg Escitalopram Oxalate (Escitalopram Oxalate 10 Mg Tablet) 10 mg PO DAILY [facility] Last Admin: 09/04/25 09:14 Dose: 10 mg Gabapentin (Gabapentin 300 Mg Capsule) 600 mg PO BID [facility] Last Admin: 09/04/25 09:15 Dose: 600 mg Levofloxacin/Dextrose (Levaquin 750 Mg/150 Ml D5w) 750 mg in 150 mls @ 100 mls/hr IV DAILY [facility] Stop: 09/07/25 08:59 Last Admin: 09/04/25 09:21 Dose: 100 mls/hr Methylprednisolone Sodium Succinate (Methylprednisolone Sod Succ/Pf 40 Mg/Ml Vial) 40 mg IVP Q8HR [facility] Last Admin: 09/04/25 12:35 Dose: 40 mg Metoprolol Succinate (Metoprolol Succinate 25 Mg Tab.Er.24h) 25 mg PO DAILY [facility] Last Admin: 09/04/25 09:14 Dose: 25 mg Ondansetron HCl (Ondansetron Hcl/Pf 4 Mg/2 Ml Sdv) 4 mg IVP Q6H PRN PRN Reason: Nausea / Vomiting Sacubitril/Valsartan (Sacubitril/Valsartan 1 Each Tablet) 1 each PO BID [facility] Last Admin: 09/04/25 09:15 Dose: 1 each Spironolactone (Spironolactone 25 Mg Tablet) 25 mg PO DAILY [facility] Last Admin: 09/04/25 09:15 Dose: 25 mg Tiotropium [place] (Tiotropium [place] 18 Mcg Cap.W.Dev) 1 cap IH DAILY [facility] Last Admin: 09/04/25 09:19 Dose: 1 cap Trazodone HCl (Trazodone Hcl 50 Mg Tablet) 50 mg PO BEDTIME [facility] Last Admin: 09/03/25 21:29 Dose: 50 mg Discharge Plan Discharge Discharge Orders: Discharge Patient (ONCE); Ordered 09/04/25 Ordered By: EUNICE MERAZ Activity Restrictions/Additional Instructions: Diagnosis: Pneumonia Diet: regular Activity: as tolerated Meds: levaquin 500mg x5 days and prednisone 20mg twice a day x5 days sent to [facility]. Start these tomorrow morning. Instructions: Bacterial Pneumonia (GEN) Patient Disposition: HOME SELF-CARE Prescriptions: New prednisone 20 mg tablet 20 mg PO BID Qty: 10 0RF levofloxacin 500 mg tablet 500 mg PO DAILY Qty: 5 0RF Continued spironolactone 25 mg tablet 25 mg PO DAILY metoprolol succinate 25 mg tablet extended release 24 hr 25 mg PO DAILY clopidogrel 75 mg tablet 75 mg PO DAILY albuterol sulfate 90 mcg/actuation HFA aerosol inhaler 2 inh inhalation Q4-6H PRN (Reason: shortness of breath or wheezing) Jardiance 10 mg tablet 10 mg PO DAILY Breztri Aerosphere 160-9-4.8 mcg/actuation HFA aerosol inhaler 2 inh inhalation BID trazodone 50 mg tablet 50 mg PO BEDTIME escitalopram oxalate 10 mg tablet 10 mg PO DAILY sacubitril-valsartan 24-26 mg tablet 1 tab PO BID gabapentin 600 mg tablet 600 mg PO BID Patient Comments: Pt reports ordered as TID, cut himself back to BID 06/21/25 atorvastatin 20 mg tablet 40 mg PO BEDTIME ticagrelor [Brilinta] 60 mg tablet 90 mg PO BID Patient Comments: Pt unsure of actual dose 06/21/25 pantoprazole [Protonix] 20 mg tablet,delayed release (DR/EC) 20 mg PO DAILY Patient Comments: Ran out, needs RX 06/21/2025 nitroglycerin 0.3 mg tablet, sublingual 0.3 mg sublingual Q5M PRN (Reason: chest pain) Rx Instructions: do not exceed 3 doses per episode sacubitril-valsartan [Entresto] 49-51 mg tablet 1 tab PO BID Did you review [place] [employer] for ALL controlled substances?: No Discussed opioids are addictive and Narcan is available by prescription or from pharmacy.: No Condition: Stable
[2025-09-04 15:31] VITALS: BP 139/79; PULSE 64; TEMP 97.4
== END 2025-09-04 16:00 | disposition home or self-care (01) ==
LOC: MEDSURG B 11:50 → ED 11:50 → MEDSURG B 15:45
PROVIDERS: ADMIT Hospitalist
DX: I50.9 Heart failure, unspecified; Z20.822 Contact with and (suspected) exposure to COVID-19; E78.5 Hyperlipidemia, unspecified; Z87.01 Personal history of pneumonia (recurrent); Z51.81 Encounter for therapeutic drug level monitoring; J44.9 Chronic obstructive pulmonary disease, unspecified; Z79.899 Other long term (current) drug therapy; I10 Essential (primary) hypertension; J18.9 Pneumonia, unspecified organism